=== PATIENT | male | born 1985 | race Caucasian/White ===

== ENCOUNTER 2016-12-01 15:53 | Emergency (ER) | payer OTHER ==
[~2016-12-01] VITALS: Ht 190.5 cm; Wt 83.5 kg
[~2016-12-01 15:53] MED LIST: ADDERALL 15 MG15 MG PO; CEPHALEXIN500 MG PO; CLONIDINE HCL0.2 MG PO; VISTARIL50 MG PO; WELLBUTRIN XL300 MG PO
== END 2016-12-01 17:42 | disposition home or self-care (01) ==
LOC: ED 15:53
DX: F15.159 Other stimulant abuse with stimulant-induced psychotic disorder, unspecified (principal); F32.9 Major depressive disorder, single episode, unspecified; Z87.891 Personal history of nicotine dependence; Z79.899 Other long term (current) drug therapy
CPT/HCPCS: 80053; 80176; 81001; 84443; 85025; 99283; G0480

== ENCOUNTER 2021-10-31 12:11 | Emergency (ER) | payer OTHER ==
[~2021-10-31] VITALS: Ht 190.5 cm; Wt 83.5 kg
[2021-10-31] MEDS ORDERED: VARENICLINE TART1 MG PO (12:30)
[2021-10-31] MEDS ORDERED: METFORMIN HCL500 M2 PO (12:30)
[2021-10-31] MEDS ORDERED: LISINOPRIL10 MG PO (12:31)
[2021-10-31] MEDS ORDERED: FENOFIBRATE160 MG PO (12:31)
[2021-10-31] MEDS ORDERED: VITAMIN D21250 MCG PO (12:32)
--- NOTE | 2021-10-31 14:53 | EKG ---
[facility] [address] [facility] [place], [place] [address] Signed Sinus tachycardia Right bundle branch block Abnormal ECG When compared with ECG of 02-DEC-2016 11:50, No significant change was found Confirmed by ULIS LOGAN MD ([id number]) on 10/31/2021 2:53:19 PM Electronically Signed By: LUIS LOGAN MD 10/31/21 1453 PATIENT NAME: ADI CH LINA Electrocardiogram DATE OF : 83 PHYSICIAN: LUIS LOGAN MD REPORT #: [id number] REPORT IS CONFIDENTIAL AND NOT TO BE RELEASED WITHOUT AUTHORIZATION
[2021-11-01] MEDS ORDERED: INVEGA SUS156 MG/1 M IM (09:21)
[2021-11-01] MEDS ORDERED: ATIVAN2 MG PO (11:31)
== END 2021-10-31 13:25 | disposition home or self-care (01) ==
LOC: ED 12:11
DX: F15.10 Other stimulant abuse, uncomplicated (principal); E11.9 Type 2 diabetes mellitus without complications; E78.5 Hyperlipidemia, unspecified; Z87.891 Personal history of nicotine dependence; Z79.84 Long term (current) use of oral hypoglycemic drugs; Z79.899 Other long term (current) drug therapy
CPT/HCPCS: 93005; 93010; 99284-25

== ENCOUNTER 2021-11-01 09:11 | Emergency (ER) | payer OTHER ==
[~2021-11-01] VITALS: Ht 190.5 cm; Wt 83.5 kg
[~2021-11-01 09:11] MED LIST changes: +FENOFIBRATE160 MG PO; +LISINOPRIL10 MG PO; +METFORMIN HCL500 M2 PO; +VARENICLINE TART1 MG PO; +VITAMIN D21250 MCG PO
--- OUTSIDE RECORDS SUMMARY | 2021-11-01 09:18 | XMS ---
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 ED/UCC VISIT TRACKING (12 MO.) 11/01/2021 09:12 [facility] [place] TYPE: Emergency COMPLAINT: - ANXIETY, MEDICAL CLEARANCE 10/31/2021 12:13 [facility] [place] TYPE: Emergency COMPLAINT: - HEART RACING INPATIENT VISIT TRACKING (12 MO.) No inpatient visits to display in this time frame [email or web address]
[2021-11-01] MEDS ORDERED: INVEGA SUS156 MG/1 M IM (09:21)
[2021-11-01] MEDS ORDERED: ATIVAN2 MG PO (11:31)
== END 2021-11-01 11:42 | disposition home or self-care (01) ==
LOC: ED 09:11
DX: G47.00 Insomnia, unspecified (principal); F15.90 Other stimulant use, unspecified, uncomplicated; E11.9 Type 2 diabetes mellitus without complications; E78.5 Hyperlipidemia, unspecified; Z87.891 Personal history of nicotine dependence; Z79.899 Other long term (current) drug therapy; Z79.84 Long term (current) use of oral hypoglycemic drugs
CPT/HCPCS: 36415; 80053; 81001; 84443; 85025; 99283; A9270-GY; G0480

== ENCOUNTER 2023-09-30 18:07 | Emergency (ER) | payer OTHER ==
[~2023-09-30] VITALS: Ht 190.5 cm; Wt 107.9 kg
[~2023-09-30 18:07] MED LIST changes: +ATIVAN2 MG PO; +INVEGA SUS156 MG/1 M IM
--- OUTSIDE RECORDS SUMMARY | 2023-09-30 18:10 | XMS ---
PreManage Notification: ADI CH Security Sonography Technician Events 2 event(s) in the past 18 months Most recent security events: Elopement at [facility] 01/24/2023 18:16 - Patient eloped with IV in place. - Patient eloped before treatment completed. - Patient with suicidal and/or homicidal ideations eloped. Details: Patient LWBS Elopement at [facility] 10/30/2022 09:18 - Patient eloped with IV in place. - Patient eloped before treatment completed. - Patient with suicidal and/or homicidal ideations eloped. Details: Patient LWBS. CRITERIA MET - Group Notification - [facility] CARE PROVIDERS -[place]- Dentist: Custom Tailor Apprentice [facility] PHONE: [phone] ULICES RAMIREZ Physician Food Products Tester Current PHONE: [phone] Care Guidelines exist for the following facilities: [facility] ( 08/28/2019 ) [place] VISIT COUNT (12 MO.) 4 [facility] TOTAL 4 NOTE: Visits indicate total known visits. ED/UCC VISIT TRACKING (12 MO.) 09/30/2023 18:08 [facility] TYPE: Emergency COMPLAINT: - INSOMNIA 01/24/2023 23:51 [facility] TYPE: Emergency COMPLAINT: - MEDICAL CLEARANCE DIAGNOSES: - Depression, unspecified - Insomnia, unspecified - retirement (current) use of oral hypoglycemic drugs - Other buttermaker continuous churn (current) drug therapy - Other stimulant abuse, uncomplicated - Personal history of nicotine dependence - Schizophrenia, unspecified - Type 2 diabetes mellitus without complications 01/24/2023 18:16 [facility] TYPE: Emergency COMPLAINT: - PSYCHOLOGICAL EVALUATION 10/30/2022 09:18 [facility] TYPE: Emergency COMPLAINT: - DIARRHEA INPATIENT VISIT TRACKING (12 MO.) No inpatient visits to display in this time frame [email or web address]
[2023-09-30 19:23] VITALS: BP 103/69
== END 2023-09-30 19:23 | disposition home or self-care (01) ==
LOC: ED 18:07
DX: G47.00 Insomnia, unspecified (principal); F15.90 Other stimulant use, unspecified, uncomplicated; E11.9 Type 2 diabetes mellitus without complications; E78.5 Hyperlipidemia, unspecified; Z79.899 Other long term (current) drug therapy; Z79.84 Long term (current) use of oral hypoglycemic drugs
CPT/HCPCS: 99283

== ENCOUNTER 2024-08-03 05:26 | Emergency (ER) | payer OTHER ==
[~2024-08-03] VITALS: Ht 190.5 cm; Wt 110.0 kg
--- OUTSIDE RECORDS SUMMARY | 2024-08-03 05:33 | XMS ---
PreManage Notification: ADI CH Security Communications Assistant Events No recent Security Events currently on file CRITERIA MET - Group Notification - [facility] - 2 Visits in 30 Days CARE PROVIDERS -, [facility] Dentist: Home Care Coordinator Current [place] PHONE: [phone] -[place]- Dentist: Home Care Coordinator Current [facility] PHONE: [phone] [facility] PHONE: Unknown Care Guidelines exist for the following facilities: [facility] ( 08/28/2019 ) [place] VISIT COUNT (12 MO.) 3 [facility] TOTAL 3 NOTE: Visits indicate total known visits. ED/UCC VISIT TRACKING (12 MO.) 08/03/2024 05:26 [facility] TYPE: Emergency COMPLAINT: - POSS OD 08/02/2024 13:30 [facility] TYPE: Emergency COMPLAINT: - SLEEP PROBLEM 09/30/2023 18:08 [facility] TYPE: Emergency COMPLAINT: - SLEEP PROBLEM DIAGNOSES: - Hyperlipidemia, unspecified - Insomnia, unspecified - assisted (current) use of oral hypoglycemic drugs - Other salvage determiner (current) drug therapy - Other stimulant use, unspecified, uncomplicated - Type 2 diabetes mellitus without complications INPATIENT VISIT TRACKING (12 MO.) No inpatient visits to display in this time frame [email or web address]
[2024-08-03] MEDS ORDERED: hydrOXYzine pamoate 50 MG CAP PO ONE (06:00)
[2024-08-03] MEDS ORDERED: HYDROXYZINE HCL25 MG PO (07:25)
[2024-08-03 07:28] VITALS: BP 121/73
== END 2024-08-03 07:28 | disposition home or self-care (01) ==
LOC: ED 05:26
DX: F15.129 Other stimulant abuse with intoxication, unspecified (principal); E11.9 Type 2 diabetes mellitus without complications; E78.5 Hyperlipidemia, unspecified; Z87.891 Personal history of nicotine dependence; Z79.84 Long term (current) use of oral hypoglycemic drugs; Z79.899 Other long term (current) drug therapy
CPT/HCPCS: 80307; 99283